=== PATIENT | female | born 1940 | race Two or more races ===

== ENCOUNTER 2017-11-02 11:08 | Inpatient (IN) | payer OTHER ==
[~2017-11-02] VITALS: Ht 167.6 cm; Wt 110.6 kg
[2017-11-02] MEDS ORDERED: OMEG1CAP59 PO (11:59)
[2017-11-02] MEDS ORDERED: FENO54TA3 PO (11:59)
[2017-11-02] MEDS ORDERED: LISI-646 PO (11:59)
[2017-11-02] MEDS ORDERED: ASPI-231 PO (11:59)
[2017-11-02] MEDS ORDERED: ATOR40TA52 PO (11:59)
[2017-11-02] MEDS ORDERED: METF-370 PO (11:59)
[2017-11-02] MEDS ORDERED: SODIUM CHLORIDE 0.9% 1,000 ML IV ONE (12:17)
[2017-11-02 12:51] LABS: Basophils # (auto) 0 uL; Basophils % (auto) 0.4 % (0.0-2.0); Eosinophils # (auto) 0.1 uL; Eosinophils % (auto) 0.7 % (0.0-7.0); Hematocrit 43.4 % (36.0-46.0); Hemoglobin 14.3 g/dL (12.2-16.2); Lymphocytes % (auto) 12.8 % (10.0-50.0); Mean Corpuscular Hemoglobin 29.6 pg (28.0-32.0); Mean Corpuscular Volume 89.7 fL (80.0-100.0); Monocytes # (auto) 0.5 uL; Monocytes % (auto) 6.2 % (0.0-12.0); Neutrophils # (auto) 5.9 uL; Neutrophils % (auto) 79.9 % (37.0-80.0); Platelet Count (auto) 266 10^3/uL (140-450); Red Blood Cells 4.84 10^6/uL (4.0-5.20); Red Cell Distribution Width 15.1 % (11.8-14.3); White Blood Cell 7.4 10^3/uL (4.4-10.8)
[2017-11-02 13:04] LABS: Partial Thromboplastin Time 27.3 sec (23.78-33.04); Prothrombin Time 10.7 sec (9.27-12.13)
[2017-11-02 13:05] LABS: Albumin 3.1 g/dL (3.4-5.0); BUN/Creatinine Ratio 12.6; Bilirubin, Total 0.6 mg/dL (0.2-1.0); Calcium 8.7 mg/dL (8.5-10.1); Potassium 3.9 mmol/L (3.5-5.1); Total Protein 7.6 g/dL (6.4-8.2)
[2017-11-02 13:12] LABS: Urine Bacteria FEW /hpf (None Seen); Urine Blood Negative /uL (Negative); Urine Specific Gravity 1.009 (1.001-1.035); Urine WBC 108 /hpf (0 - 5); Urine WBC Clumps PRESENT /hpf (None Seen)
[2017-11-02] MEDS ORDERED: cefTRIAXone 1GM/10ml IVPUSH 10 ML IV ONE (15:30)
[2017-11-02] MEDS ORDERED: DEXTROSE (50%) 50ML SYRG IV PRN (16:45)
[2017-11-02] MEDS: InsuLIN REG 1unit/0.01ml Soln (100units/ml) SC SCH ×2 (17:00→22:04)
[2017-11-02] MEDS: ACCU-CHEK COMFORT CURVE STRIP VI SCH ×3 (17:00→22:04)
[2017-11-02] MEDS ORDERED: ACETAMINOPHEN 325 MG TAB PO PRN (17:15)
[2017-11-02] MEDS ORDERED: TEMAZEPAM 15 MG CAP PO PRN (17:15)
[2017-11-02] MEDS ORDERED: DOCUSATE SOD 100 MG CAP PO PRN (17:15)
[2017-11-02] MEDS ORDERED: ONDANSETRON HCL 4 MG/2 ML VIAL IV PRN (17:15)
[2017-11-02] MEDS ORDERED: MORPHINE SULFATE 8mg/ml INJ SDV IV PRN (17:15)
[2017-11-02] MEDS ORDERED: HYDROcodone-ACET 5/325MG TAB PO PRN (17:15)
[2017-11-02] MEDS ORDERED: NITROGLYCERIN 0.4 MG SL TAB SL PRN (17:15)
[2017-11-02 20:30] VITALS: BP 116/58
[2017-11-02] MEDS: ATORVASTATIN 20 MG TAB PO SCH (21:49)
[2017-11-02] MEDS: OMEGA-3 PO SCH (21:49)
[2017-11-02] MEDS: Boost Glucose Control 8 Ounces PO SCH (21:49)
[2017-11-02] MEDS: SODIUM CHLOR 0.9% PF (SALINE LOCK) 10ML VIAL/SYR IV SCH (21:49)
[2017-11-03 05:29] VITALS: BP 114/52
[2017-11-03 05:59] LABS: Basophils # (auto) 0 uL; Basophils % (auto) 0.2 % (0.0-2.0); Eosinophils # (auto) 0.2 uL; Eosinophils % (auto) 2.8 % (0.0-7.0); Hematocrit 39.1 % (36.0-46.0); Hemoglobin 13.2 g/dL (12.2-16.2); Lymphocytes # (auto) 1.7 uL; Lymphocytes % (auto) 25.1 % (10.0-50.0); Mean Corpuscular Hgb Conc. 33.9 g/dL (32.0-36.0); Mean Corpuscular Volume 88.5 fL (80.0-100.0); Monocytes # (auto) 0.7 uL; Monocytes % (auto) 10.1 % (0.0-12.0); Neutrophils # (auto) 4.2 uL; Neutrophils % (auto) 61.8 % (37.0-80.0); Nucleated Red Blood Cells % 0.2 %; Platelet Count (auto) 238 10^3/uL (140-450); Red Blood Cells 4.41 10^6/uL (4.0-5.20); Red Cell Distribution Width 15.3 % (11.8-14.3); White Blood Cell 6.8 10^3/uL (4.4-10.8)
[2017-11-03] MEDS: OMEGA-3 PO SCH ×3 (06:10→22:25)
[2017-11-03] MEDS: SODIUM CHLOR 0.9% PF (SALINE LOCK) 10ML VIAL/SYR IV SCH ×3 (06:10→22:25)
[2017-11-03 06:13] LABS: BUN/Creatinine Ratio 22.6; Bilirubin, Total 0.7 mg/dL (0.2-1.0); Calcium 8.4 mg/dL (8.5-10.1); Total Protein 7.1 g/dL (6.4-8.2)
[2017-11-03] MEDS: ACCU-CHEK COMFORT CURVE STRIP VI SCH ×4 (06:15→22:26)
[2017-11-03] MEDS: InsuLIN REG 1unit/0.01ml Soln (100units/ml) SC SCH ×4 (06:28→22:26)
[2017-11-03] MEDS: Boost Glucose Control 8 Ounces PO SCH ×3 (08:00→18:00)
[2017-11-03 08:56] VITALS: BP 127/55
[2017-11-03] MEDS: cefTRIAXone 1GM/10ml IVPUSH 10 ML IV SCH (09:33)
[2017-11-03] MEDS: ENOXAPARIN SOD 40 MG/0.4 ML SYRINGE SC SCH (09:33)
[2017-11-03] MEDS: MULTIPLE VITAMIN TAB PO SCH (09:34)
[2017-11-03] MEDS: LISINOPRIL 20 MG TAB PO SCH (09:34)
[2017-11-03] MEDS: ASPirin-EC 81 mg tab PO SCH (09:35)
[2017-11-03] MEDS: FENOFIBRATE 54 MG PO SCH (10:00)
[2017-11-03 13:17] VITALS: BP 102/57
[2017-11-03] MEDS ORDERED: IOHEXOL 350 MG/ML 100ML IJ ONE (14:35)
[2017-11-03 16:49] VITALS: BP 115/46
[2017-11-03 22:00] VITALS: BP 108/64
[2017-11-03] MEDS: ATORVASTATIN 20 MG TAB PO SCH (22:25)
[2017-11-04 05:00] VITALS: BP 113/54
[2017-11-04] MEDS: OMEGA-3 PO SCH ×3 (06:25→22:00)
[2017-11-04] MEDS: SODIUM CHLOR 0.9% PF (SALINE LOCK) 10ML VIAL/SYR IV SCH ×3 (06:25→22:00)
[2017-11-04] MEDS: ACCU-CHEK COMFORT CURVE STRIP VI SCH ×4 (06:43→22:10)
[2017-11-04] MEDS: InsuLIN REG 1unit/0.01ml Soln (100units/ml) SC SCH ×4 (06:43→22:10)
[2017-11-04] MEDS: Boost Glucose Control 8 Ounces PO SCH ×3 (08:00→18:00)
[2017-11-04 08:53] VITALS: BP 93/42
[2017-11-04] MEDS: LISINOPRIL 20 MG TAB PO SCH (10:00)
[2017-11-04] MEDS: FENOFIBRATE 54 MG PO SCH (10:08)
[2017-11-04] MEDS: MULTIPLE VITAMIN TAB PO SCH (10:09)
[2017-11-04] MEDS: ASPirin-EC 81 mg tab PO SCH (10:09)
[2017-11-04] MEDS: cefTRIAXone 1GM/10ml IVPUSH 10 ML IV SCH (10:10)
[2017-11-04] MEDS: ENOXAPARIN SOD 40 MG/0.4 ML SYRINGE SC SCH (10:17)
[2017-11-04 13:07] VITALS: BP 101/73
[2017-11-04] MEDS ORDERED: DILTIAZEM HCL 25 MG/5 ML VIAL IV ONE ×2 (13:30→14:15)
[2017-11-04] MEDS ORDERED: METOPROLOL TARTRATE 1MG/1ML-5ML VIAL IV ONE ×2 (14:45→17:00)
[2017-11-04 16:58] VITALS: BP 97/60
[2017-11-04] MEDS ORDERED: SOTALOL HCL 80 MG TAB PO ONE (18:15)
[2017-11-04] MEDS ORDERED: DIGOXIN (250MCG/ML) 2 ML AMPULE IV ONE (21:00)
[2017-11-04 22:00] VITALS: BP 97/53
[2017-11-04] MEDS: ATORVASTATIN 20 MG TAB PO SCH (22:10)
[2017-11-05] VITALS (9 sets, daily range): BP systolic 100–153; BP diastolic 56–82
[2017-11-05] MEDS ORDERED: DIGOXIN (250MCG/ML) 2 ML AMPULE ONE (00:52)
[2017-11-05] MEDS ORDERED: DIGOXIN (250MCG/ML) 2 ML AMPULE IV ONE ×2 (01:00→04:30)
[2017-11-05] MEDS ORDERED: AMIODARONE HCL 150 MG in D5W 5% 100 ML IV ONE (05:45)
[2017-11-05] MEDS ORDERED: AMIODARONE HCL 900 MG in DEXTROSE 500 ML IV SCH (05:55)
[2017-11-05] MEDS: SODIUM CHLOR 0.9% PF (SALINE LOCK) 10ML VIAL/SYR IV SCH ×3 (06:35→21:11)
[2017-11-05] MEDS: InsuLIN REG 1unit/0.01ml Soln (100units/ml) SC SCH ×4 (06:36→21:20)
[2017-11-05] MEDS: ACCU-CHEK COMFORT CURVE STRIP VI SCH ×4 (06:36→22:00)
[2017-11-05] MEDS ORDERED: AMIODARONE HCL 0 MG IV ONE (06:36)
[2017-11-05] MEDS: OMEGA-3 PO SCH ×3 (06:36→21:11)
[2017-11-05] MEDS: Boost Glucose Control 8 Ounces PO SCH ×3 (08:00→17:48)
[2017-11-05] MEDS ORDERED: SOTALOL HCL 80 MG TAB PO SCH (10:00)
[2017-11-05] MEDS: cefTRIAXone 1GM/10ml IVPUSH 10 ML IV SCH (10:30)
[2017-11-05] MEDS: FENOFIBRATE 54 MG PO SCH (10:30)
[2017-11-05] MEDS: MULTIPLE VITAMIN TAB PO SCH (10:31)
[2017-11-05] MEDS: APIXABAN 5 MG TAB PO SCH ×2 (10:42→21:11)
[2017-11-05] MEDS ORDERED: METOPROLOL TARTRATE 25 MG TAB PO SCH (10:45)
[2017-11-05 11:23] LABS: Albumin 2.7 g/dL (3.4-5.0); BUN/Creatinine Ratio 30.3; Bilirubin, Total 0.4 mg/dL (0.2-1.0); Calcium 8.7 mg/dL (8.5-10.1); Magnesium 2.7 mg/dL (1.6-2.6); Potassium 4.8 mmol/L (3.5-5.1); Total Protein 7.2 g/dL (6.4-8.2)
[2017-11-05 13:32] LABS: Basophils # (auto) 0.1 uL; Basophils % (auto) 0.8 % (0.0-2.0); Eosinophils # (auto) 0.4 uL; Eosinophils % (auto) 6.4 % (0.0-7.0); Hematocrit 41.5 % (36.0-46.0); Hemoglobin 14.1 g/dL (12.2-16.2); Lymphocytes % (auto) 30.3 % (10.0-50.0); Mean Corpuscular Hgb Conc. 33.9 g/dL (32.0-36.0); Mean Corpuscular Volume 88.5 fL (80.0-100.0); Monocytes # (auto) 0.6 uL; Monocytes % (auto) 9.1 % (0.0-12.0); Neutrophils # (auto) 3.5 uL; Neutrophils % (auto) 53.4 % (37.0-80.0); Nucleated Red Blood Cells % 0.1 %; Platelet Count (auto) 290 10^3/uL (140-450); Red Blood Cells 4.68 10^6/uL (4.0-5.20); Red Cell Distribution Width 14.6 % (11.8-14.3); White Blood Cell 6.6 10^3/uL (4.4-10.8)
[2017-11-05] MEDS ORDERED: SODIUM CHLORIDE 0.9% 500 ML IV ONE (14:15)
[2017-11-05] MEDS: AMIODARONE HCL 900 MG in DEXTROSE 500 ML IV SCH (17:36)
[2017-11-05] MEDS: ATORVASTATIN 20 MG TAB PO SCH (21:11)
[2017-11-05] MEDS: METOPROLOL TARTRATE 25 MG TAB PO SCH (21:11)
[2017-11-06] VITALS (13 sets, daily range): BP systolic 101–136; BP diastolic 26–104
[2017-11-06] MEDS: SODIUM CHLOR 0.9% PF (SALINE LOCK) 10ML VIAL/SYR IV SCH ×3 (06:00→22:07)
[2017-11-06] MEDS: OMEGA-3 PO SCH ×3 (06:00→21:45)
[2017-11-06] MEDS: InsuLIN REG 1unit/0.01ml Soln (100units/ml) SC SCH ×4 (07:00→21:44)
[2017-11-06] MEDS: ACCU-CHEK COMFORT CURVE STRIP VI SCH ×4 (07:00→21:44)
[2017-11-06] MEDS: cefTRIAXone 1GM/10ml IVPUSH 10 ML IV SCH (09:07)
[2017-11-06] MEDS: AMIODARONE HCL 200 MG TAB PO SCH ×2 (09:07→20:00)
[2017-11-06] MEDS: Boost Glucose Control 8 Ounces PO SCH ×3 (09:12→18:18)
[2017-11-06] MEDS: MULTIPLE VITAMIN TAB PO SCH (09:57)
[2017-11-06] MEDS: APIXABAN 5 MG TAB PO SCH ×2 (09:57→21:43)
[2017-11-06] MEDS: METOPROLOL TARTRATE 25 MG TAB PO SCH ×2 (09:57→21:42)
[2017-11-06] MEDS: FENOFIBRATE 54 MG PO SCH (09:58)
[2017-11-06 10:28] LABS: Basophils # (auto) 0 uL; Basophils % (auto) 0.6 % (0.0-2.0); Eosinophils # (auto) 0.3 uL; Eosinophils % (auto) 5.3 % (0.0-7.0); Hematocrit 40.5 % (36.0-46.0); Hemoglobin 13.4 g/dL (12.2-16.2); Lymphocytes % (auto) 32.5 % (10.0-50.0); Mean Corpuscular Hemoglobin 29.3 pg (28.0-32.0); Mean Corpuscular Volume 88.5 fL (80.0-100.0); Monocytes # (auto) 0.4 uL; Monocytes % (auto) 6.7 % (0.0-12.0); Neutrophils # (auto) 3.4 uL; Neutrophils % (auto) 54.9 % (37.0-80.0); Platelet Count (auto) 262 10^3/uL (140-450); Red Blood Cells 4.57 10^6/uL (4.0-5.20); White Blood Cell 6.3 10^3/uL (4.4-10.8)
[2017-11-06 10:59] LABS: Albumin 2.9 g/dL (3.4-5.0); BUN/Creatinine Ratio 23.2; Bilirubin, Total 0.4 mg/dL (0.2-1.0); Calcium 8.7 mg/dL (8.5-10.1); Potassium 4.5 mmol/L (3.5-5.1); Total Protein 6.9 g/dL (6.4-8.2)
[2017-11-06] MEDS: AMIODARONE HCL 900 MG in DEXTROSE 500 ML IV SCH (11:55)
[2017-11-06] MEDS ORDERED: DIGOXIN (250MCG/ML) 2 ML AMPULE IV ONE (12:00)
[2017-11-06] MEDS ORDERED: METOPROLOL TARTRATE 25 MG TAB PO ONE (12:15)
[2017-11-06] MEDS: ATORVASTATIN 20 MG TAB PO SCH (21:43)
[2017-11-07] VITALS: BP 119/51
[2017-11-07 04:00] VITALS: BP 126/55
[2017-11-07 05:13] LABS: Basophils # (auto) 0.1 uL; Basophils % (auto) 0.7 % (0.0-2.0); Eosinophils # (auto) 0.4 uL; Eosinophils % (auto) 5.6 % (0.0-7.0); Hematocrit 40.7 % (36.0-46.0); Hemoglobin 13.7 g/dL (12.2-16.2); Lymphocytes # (auto) 2.3 uL; Lymphocytes % (auto) 30.7 % (10.0-50.0); Mean Corpuscular Hemoglobin 29.8 pg (28.0-32.0); Mean Corpuscular Hgb Conc. 33.5 g/dL (32.0-36.0); Mean Corpuscular Volume 88.7 fL (80.0-100.0); Monocytes # (auto) 0.5 uL; Monocytes % (auto) 6.8 % (0.0-12.0); Neutrophils # (auto) 4.2 uL; Neutrophils % (auto) 56.2 % (37.0-80.0); Nucleated Red Blood Cells % 0.3 %; Platelet Count (auto) 254 10^3/uL (140-450); Red Blood Cells 4.59 10^6/uL (4.0-5.20); White Blood Cell 7.4 10^3/uL (4.4-10.8)
[2017-11-07 05:41] LABS: Albumin 2.9 g/dL (3.4-5.0); BUN/Creatinine Ratio 22.9; Calcium 8.7 mg/dL (8.5-10.1); Potassium 4.4 mmol/L (3.5-5.1)
[2017-11-07 05:44] LABS: Bilirubin, Total 0.5 mg/dL (0.2-1.0); Total Protein 7.1 g/dL (6.4-8.2)
[2017-11-07] MEDS: OMEGA-3 PO SCH ×3 (06:00→21:11)
[2017-11-07] MEDS: SODIUM CHLOR 0.9% PF (SALINE LOCK) 10ML VIAL/SYR IV SCH ×3 (06:00→21:11)
[2017-11-07] MEDS: InsuLIN REG 1unit/0.01ml Soln (100units/ml) SC SCH ×4 (07:00→21:14)
[2017-11-07] MEDS: ACCU-CHEK COMFORT CURVE STRIP VI SCH ×4 (07:00→21:12)
[2017-11-07 08:03] VITALS: BP 123/67
[2017-11-07] MEDS: AMIODARONE HCL 200 MG TAB PO SCH ×2 (08:09→19:59)
[2017-11-07] MEDS: Boost Glucose Control 8 Ounces PO SCH (09:26)
[2017-11-07] MEDS: MULTIPLE VITAMIN TAB PO SCH (11:00)
[2017-11-07] MEDS: METOPROLOL TARTRATE 25 MG TAB PO SCH ×2 (11:00→21:32)
[2017-11-07] MEDS ORDERED: AMIODARONE HCL 150 MG in D5W 5% 100 ML IV ONE (11:00)
[2017-11-07] MEDS: FENOFIBRATE 54 MG PO SCH (11:00)
[2017-11-07] MEDS: APIXABAN 5 MG TAB PO SCH ×2 (11:00→21:10)
[2017-11-07 11:50] VITALS: BP 132/74
[2017-11-07] MEDS ORDERED: DEXTROSE (50%) 50ML SYRG IV PRN (14:00)
[2017-11-07] MEDS: cefTRIAXone 1GM/10ml IVPUSH 10 ML IV SCH (15:43)
[2017-11-07 16:00] VITALS: BP 123/68
[2017-11-07 19:44] VITALS: BP 114/59
[2017-11-07] MEDS: ATORVASTATIN 20 MG TAB PO SCH (21:11)
[2017-11-08] VITALS (7 sets, daily range): BP systolic 101–153; BP diastolic 53–68
[2017-11-08] MEDS: InsuLIN REG 1unit/0.01ml Soln (100units/ml) SC SCH ×4 (05:57→21:13)
[2017-11-08] MEDS: SODIUM CHLOR 0.9% PF (SALINE LOCK) 10ML VIAL/SYR IV SCH ×3 (05:57→21:03)
[2017-11-08] MEDS: ACCU-CHEK COMFORT CURVE STRIP VI SCH ×4 (05:57→21:13)
[2017-11-08] MEDS: OMEGA-3 PO SCH ×3 (05:58→21:11)
[2017-11-08 06:05] LABS: Basophils # (auto) 0.1 uL; Basophils % (auto) 0.9 % (0.0-2.0); Eosinophils # (auto) 0.4 uL; Eosinophils % (auto) 4.4 % (0.0-7.0); Hemoglobin 12.1 g/dL (12.2-16.2); Lymphocytes # (auto) 2.4 uL; Lymphocytes % (auto) 28.1 % (10.0-50.0); Mean Corpuscular Hemoglobin 29.8 pg (28.0-32.0); Mean Corpuscular Hgb Conc. 33.7 g/dL (32.0-36.0); Mean Corpuscular Volume 88.5 fL (80.0-100.0); Monocytes # (auto) 0.6 uL; Neutrophils # (auto) 5.1 uL; Neutrophils % (auto) 59.6 % (37.0-80.0); Platelet Count (auto) 307 10^3/uL (140-450); Red Blood Cells 4.07 10^6/uL (4.0-5.20); White Blood Cell 8.5 10^3/uL (4.4-10.8)
[2017-11-08 06:19] LABS: Albumin 2.9 g/dL (3.4-5.0); BUN/Creatinine Ratio 20.5; Calcium 7.9 mg/dL (8.5-10.1); Potassium 5.4 mmol/L (3.5-5.1)
[2017-11-08 06:22] LABS: Bilirubin, Total 0.6 mg/dL (0.2-1.0); Total Protein 6.8 g/dL (6.4-8.2)
[2017-11-08] MEDS: AMIODARONE HCL 200 MG TAB PO SCH ×2 (08:00→19:43)
[2017-11-08] MEDS: APIXABAN 5 MG TAB PO SCH ×2 (09:11→21:11)
[2017-11-08] MEDS: METOPROLOL TARTRATE 25 MG TAB PO SCH ×2 (09:16→21:12)
[2017-11-08] MEDS: cefTRIAXone 1GM/10ml IVPUSH 10 ML IV SCH (09:16)
[2017-11-08] MEDS: FENOFIBRATE 54 MG PO SCH (09:17)
[2017-11-08] MEDS: MULTIPLE VITAMIN TAB PO SCH (09:17)
[2017-11-08] MEDS ORDERED: FUROSEMIDE 20 MG/2 ML VIAL IV ONE (10:30)
[2017-11-08] MEDS ORDERED: SODIUM BICARBONATE 8.4% INJ 50ML SYRINGE IV ONE (10:30)
[2017-11-08] MEDS ORDERED: CALCIUM GLUC 4.65meq/50ml D5AE 50 ML IV ONE (10:30)
[2017-11-08] MEDS: CIPROFLOXACIN HCL 500 MG TAB PO SCH ×2 (10:51→21:11)
[2017-11-08] MEDS ORDERED: AMIODARONE HCL 200 MG TAB PO ONE (16:15)
[2017-11-08] MEDS: ATORVASTATIN 20 MG TAB PO SCH (21:12)
[2017-11-09 05:23] VITALS: BP 122/56
[2017-11-09] MEDS: SODIUM CHLOR 0.9% PF (SALINE LOCK) 10ML VIAL/SYR IV SCH ×2 (05:58→14:36)
[2017-11-09 06:05] LABS: Basophils # (auto) 0.1 uL; Basophils % (auto) 1.5 % (0.0-2.0); Eosinophils # (auto) 0.5 uL; Eosinophils % (auto) 6.4 % (0.0-7.0); Hematocrit 34.7 % (36.0-46.0); Hemoglobin 11.5 g/dL (12.2-16.2); Lymphocytes # (auto) 1.9 uL; Mean Corpuscular Hemoglobin 29.6 pg (28.0-32.0); Mean Corpuscular Hgb Conc. 33.2 g/dL (32.0-36.0); Mean Corpuscular Volume 89.1 fL (80.0-100.0); Monocytes # (auto) 0.5 uL; Monocytes % (auto) 6.1 % (0.0-12.0); Neutrophils # (auto) 4.7 uL; Nucleated Red Blood Cells % 0.1 %; Platelet Count (auto) 254 10^3/uL (140-450); Red Blood Cells 3.89 10^6/uL (4.0-5.20); Red Cell Distribution Width 14.6 % (11.8-14.3); White Blood Cell 7.6 10^3/uL (4.4-10.8)
[2017-11-09] MEDS: OMEGA-3 PO SCH ×2 (06:13→14:37)
[2017-11-09] MEDS: ACCU-CHEK COMFORT CURVE STRIP VI SCH ×2 (06:13→11:59)
[2017-11-09] MEDS: InsuLIN REG 1unit/0.01ml Soln (100units/ml) SC SCH ×2 (06:13→11:59)
[2017-11-09 06:30] LABS: Potassium 4.2 mmol/L (3.5-5.1)
[2017-11-09 06:34] LABS: Albumin 2.7 g/dL (3.4-5.0); Calcium 8.5 mg/dL (8.5-10.1)
[2017-11-09 06:46] LABS: Bilirubin, Total 0.5 mg/dL (0.2-1.0); Total Protein 6.5 g/dL (6.4-8.2)
[2017-11-09] MEDS: FENOFIBRATE 54 MG PO SCH (08:20)
[2017-11-09] MEDS: MULTIPLE VITAMIN TAB PO SCH (08:20)
[2017-11-09] MEDS: CIPROFLOXACIN HCL 500 MG TAB PO SCH (08:21)
[2017-11-09] MEDS: METOPROLOL TARTRATE 25 MG TAB PO SCH (08:21)
[2017-11-09] MEDS: APIXABAN 5 MG TAB PO SCH (08:22)
[2017-11-09] MEDS: AMIODARONE HCL 200 MG TAB PO SCH (08:37)
[2017-11-09 09:00] VITALS: BP 125/60
[2017-11-09 13:00] VITALS: BP 124/62
== END 2017-11-09 14:46 | disposition home or self-care (01) | DRG 64 ==
LOC: EDBD 11:08 → ER 11:13 → TELE 11:14 → TELE-CENTR 19:53 → DOU IN ICU 11-05 05:56 → TELE-EAST 11-08 22:35
PROVIDERS: ADMIT Internal Medicine; ATTEND Family Medicine
DX: I63.9 Cerebral infarction, unspecified (principal); J96.91 Respiratory failure, unspecified with hypoxia; E44.0 Moderate protein-calorie malnutrition; E11.21 Type 2 diabetes mellitus with diabetic nephropathy; E11.40 Type 2 diabetes mellitus with diabetic neuropathy, unspecified; I48.91 Unspecified atrial fibrillation; E87.1 Hypo-osmolality and hyponatremia; E66.01 Morbid (severe) obesity due to excess calories; N39.0 Urinary tract infection, site not specified; W18.2XXA Fall in (into) shower or empty bathtub, initial encounter; E03.9 Hypothyroidism, unspecified; E11.22 Type 2 diabetes mellitus with diabetic chronic kidney disease; N18.3 Chronic kidney disease, stage 3 (moderate); Z68.36 Body mass index [BMI] 36.0-36.9, adult; E78.00 Pure hypercholesterolemia, unspecified; E78.5 Hyperlipidemia, unspecified; E86.0 Dehydration; G89.29 Other chronic pain; M25.562 Pain in left knee; M25.561 Pain in right knee; E86.1 Hypovolemia; E87.5 Hyperkalemia; Z96.653 Presence of artificial knee joint, bilateral; F02.80 Dementia in other diseases classified elsewhere, unspecified severity, without behavioral disturbance, psychotic disturbance, mood disturbance, and anxiety; G30.9 Alzheimer's disease, unspecified; G83.14 Monoplegia of lower limb affecting left nondominant side; I12.9 Hypertensive chronic kidney disease with stage 1 through stage 4 chronic kidney disease, or unspecified chronic kidney disease; Z79.01 Long term (current) use of anticoagulants; Z90.710 Acquired absence of both cervix and uterus; Z79.4 Long term (current) use of insulin; Z79.899 Other long term (current) drug therapy; Z82.49 Family history of ischemic heart disease and other diseases of the circulatory system; Y92.89 Other specified places as the place of occurrence of the external cause; Y99.8 Other external cause status; Z79.82 Long term (current) use of aspirin; Y93.E1 Activity, personal bathing and showering; E87.6 Hypokalemia
CPT/HCPCS: 36415; 51702; 70450; 71046; 71275; 73564; 80053; 81001; 82962; 83036; 83605; 83735; 83880; 84443; 84484; 85025; 85379; 85610; 85730; 87040; 87081; 87086; 87088; 87186; 93005; 93306; 93886; 93970; 94761; 96361; 96374; 97110; 97116; 97163; 97530; J0610; J1815; J7060

== ENCOUNTER 2019-04-12 07:54 | Emergency (ER) | payer OTHER, MEDICAID ==
[~2019-04-12] VITALS: Ht 172.7 cm; Wt 113.4 kg
[~2019-04-12 07:54] MED LIST: ASPI-231 PO; ATOR40TA52 PO; FENO54TA PO; LISI-646 PO; METF-370 PO; OMEG1CAP59 PO
[2019-04-12 09:42] LABS: Basophils # (auto) 0 uL; Basophils % (auto) 0.5 % (0.0-2.0); Eosinophils # (auto) 0.2 uL; Eosinophils % (auto) 2.3 % (0.0-7.0); Hematocrit 41.9 % (36.0-46.0); Lymphocytes # (auto) 1.5 uL; Mean Corpuscular Hemoglobin 30.2 pg (28.0-32.0); Mean Corpuscular Hgb Conc. 33.5 g/dL (32.0-36.0); Mean Corpuscular Volume 90.3 fL (80.0-100.0); Monocytes # (auto) 0.4 uL; Monocytes % (auto) 5.2 % (0.0-12.0); Neutrophils # (auto) 5.1 uL; Platelet Count (auto) 225 10^3/uL (140-450); Red Blood Cells 4.64 10^6/uL (4.0-5.20); Red Cell Distribution Width 14.3 % (11.8-14.3); White Blood Cell 7.2 10^3/uL (4.4-10.8)
[2019-04-12 10:18] LABS: Alanine Aminotransferase 17 U/L (13-56); Albumin 3.3 g/dL (3.4-5.0); Alkaline Phosphatase 111 U/L (45-117); Anion Gap 7 (5-15); Aspartate Aminotransferase 14 U/L (15-37); BUN/Creatinine Ratio 13.4; Bilirubin, Total 0.4 mg/dL (0.2-1.0); Blood Urea Nitrogen 13 mg/dL (7-18); Calcium 8.6 mg/dL (8.5-10.1); Carbon Dioxide 33 mmol/L (21-32); Chloride 99 mmol/L (98-107); GFR African American 72 mL/min; GFR Non-African American 59 mL/min; Glucose 204 mg/dL (74-106); Potassium 4.4 mmol/L (3.5-5.1); Sodium 139 mmol/L (136-145); Total Protein 7.7 g/dL (6.4-8.2)
[2019-04-12 11:01] VITALS: BP 122/44
== END 2019-04-12 11:52 | disposition home or self-care (01) ==
LOC: EDBD 07:54 → ER 07:54
DX: E11.65 Type 2 diabetes mellitus with hyperglycemia (principal); E44.1 Mild protein-calorie malnutrition; N39.0 Urinary tract infection, site not specified; R55 Syncope and collapse; I48.91 Unspecified atrial fibrillation; E78.5 Hyperlipidemia, unspecified; I10 Essential (primary) hypertension; Z79.899 Other long term (current) drug therapy
CPT/HCPCS: 36415; 70450; 80053; 82962; 83735; 84484; 85025

== ENCOUNTER 2021-05-03 14:41 | Emergency (ER) | payer OTHER, MEDICAID ==
[~2021-05-03] VITALS: Ht 162.6 cm; Wt 90.7 kg
[~2021-05-03 14:41] MED LIST changes: -ASPI-231 PO; +ASPI1TAB20 PO; -LISI-646 PO; +LISI20TA28 PO
[2021-05-03 15:45] VITALS: BP 111/43
== END 2021-05-03 16:51 | disposition home or self-care (01) ==
LOC: ER 14:41
DX: S20.212A Contusion of left front wall of thorax, initial encounter (principal); J04.0 Acute laryngitis; J44.9 Chronic obstructive pulmonary disease, unspecified; I10 Essential (primary) hypertension; I48.91 Unspecified atrial fibrillation; E11.9 Type 2 diabetes mellitus without complications; E78.5 Hyperlipidemia, unspecified; Z90.710 Acquired absence of both cervix and uterus; Z79.82 Long term (current) use of aspirin; Z79.899 Other long term (current) drug therapy; W01.0XXA Fall on same level from slipping, tripping and stumbling without subsequent striking against object, initial encounter; Y93.89 Activity, other specified; Y92.89 Other specified places as the place of occurrence of the external cause; Y99.8 Other external cause status
CPT/HCPCS: 71101; 93005

== ENCOUNTER 2021-12-31 14:38 | Emergency (ER) | payer OTHER, MEDICAID ==
[~2021-12-31] VITALS: Ht 170.2 cm; Wt 190.0 kg
[2021-12-31] MEDS ORDERED: SODIUM CHLORIDE 0.9% 1,000 ML IVB ONE (16:00)
[2021-12-31 16:54] LABS: Basophils # (auto) 0 10 ^3/uL (0-0.2); Basophils % (auto) 0.6 % (0.0-2.0); Eosinophils # (auto) 0.1 10 ^3/uL (0-0.8); Eosinophils % (auto) 1.1 % (0.0-7.0); Lymphocytes # (auto) 1.2 10 ^3/uL (0.4-5.4); Lymphocytes % (auto) 16.1 % (10.0-50.0); Mean Corpuscular Hemoglobin 29.5 pg (28.0-32.0); Mean Corpuscular Hgb Conc. 32.6 g/dL (32.0-36.0); Mean Corpuscular Volume 90.5 fL (80.0-100.0); Monocytes # (auto) 0.4 10 ^3/uL (0-1.3); Monocytes % (auto) 5.2 % (0.0-12.0); Neutrophils # (auto) 5.8 10 ^3/uL (1.6-8.6); Nucleated Red Blood Cells % 0.1 %; Red Blood Cells 4.42 10^6/uL (4.0-5.20); Red Cell Distribution Width 14.4 % (11.8-14.3); White Blood Cell 7.5 10^3/uL (4.4-10.8)
[2021-12-31 17:13] LABS: Albumin 3.6 g/dL (3.4-5.0); BUN/Creatinine Ratio 14.7; Calcium 9.1 mg/dL (8.5-10.1); Magnesium 2.4 mg/dL (1.6-2.6); Potassium 4.7 mmol/L (3.5-5.1)
[2021-12-31 17:16] LABS: Bilirubin, Total 0.5 mg/dL (0.2-1.0); Total Protein 6.9 g/dL (6.4-8.2)
[2021-12-31 17:30] LABS: Urine Bacteria MANY /hpf (None Seen); Urine Blood Negative /uL (Negative); Urine Hyaline Cast MOD /lpf (0 - 2); Urine Mucus FEW (None Seen); Urine Specific Gravity 1.014 (1.001-1.035); Urine WBC 34 /hpf (0 - 5)
[2021-12-31] MEDS ORDERED: cefTRIAXone 1GM/50ML D5W 50 ML IV ONE (18:15)
[2021-12-31] MEDS ORDERED: CIPR-173 PO (21:50)
[2021-12-31 22:25] VITALS: BP 102/48
[2022-01-01] MEDS ORDERED: NITR-87 PO (15:25)
== END 2021-12-31 22:35 | disposition home or self-care (01) ==
LOC: ER 14:38 → EDBD 14:38 → ER 22:35
DX: R42 Dizziness and giddiness (principal); N39.0 Urinary tract infection, site not specified; J44.9 Chronic obstructive pulmonary disease, unspecified; E11.9 Type 2 diabetes mellitus without complications; E78.5 Hyperlipidemia, unspecified; Z20.822 Contact with and (suspected) exposure to COVID-19
CPT/HCPCS: 36415; 70450; 71045; 74176; 80053; 81001; 82728; 83605; 83735; 84484; 85025; 86141; 87040; 87077; 87186; 87426; 96361; 96365; 99285; J0696; J7030

== ENCOUNTER 2022-09-15 15:25 | Inpatient (IN) | payer OTHER, MEDICAID ==
[~2022-09-15] VITALS: Ht 160 cm; Wt 83.8 kg
[~2022-09-15 15:25] MED LIST changes: +CIPR-173 PO; +NITR-87 PO
[2022-09-15] MEDS ORDERED: AMIODARONE 450mg/250ml AE 250 ML IV SCH (16:00)
[2022-09-15 16:24] LABS: Basophils # (auto) 0.1 10 ^3/uL (0-0.2); Basophils % (auto) 1.2 % (0.0-2.0); Eosinophils # (auto) 0.1 10 ^3/uL (0-0.8); Eosinophils % (auto) 1.5 % (0.0-7.0); Hematocrit 41.8 % (36.0-46.0); Hemoglobin 13.7 g/dL (12.2-16.2); Lymphocytes # (auto) 1.3 10 ^3/uL (0.4-5.4); Lymphocytes % (auto) 20.5 % (10.0-50.0); Mean Corpuscular Hemoglobin 29.2 pg (28.0-32.0); Mean Corpuscular Hgb Conc. 32.8 g/dL (32.0-36.0); Monocytes # (auto) 0.3 10 ^3/uL (0-1.3); Neutrophils # (auto) 4.7 10 ^3/uL (1.6-8.6); Neutrophils % (auto) 71.8 % (37.0-80.0); Nucleated Red Blood Cells % 0.2 %; Red Blood Cells 4.69 10^6/uL (4.0-5.20); Red Cell Distribution Width 15.6 % (11.8-14.3); White Blood Cell 6.5 10^3/uL (4.4-10.8)
[2022-09-15 17:01] LABS: Albumin 3.2 g/dL (3.4-5.0); Calcium 8.7 mg/dL (8.5-10.1); Potassium 4.6 mmol/L (3.5-5.1)
[2022-09-15 17:05] LABS: BUN/Creatinine Ratio 17.2 (10.0-20.0); Bilirubin, Total 0.9 mg/dL (0.2-1.0); Total Protein 6.4 g/dL (6.4-8.2)
[2022-09-15 18:30] LABS: Urine Bacteria MOD /hpf (None Seen); Urine Blood Negative /uL (Negative); Urine Hyaline Cast MOD /lpf (0 - 2); Urine Mucus FEW (None Seen); Urine Specific Gravity 1.015 (1.001-1.035); Urine WBC 2 /hpf (0 - 5)
[2022-09-15] MEDS ORDERED: ATOR20TA50 PO (18:51)
[2022-09-15] MEDS ORDERED: APIX5TAB PO (18:51)
[2022-09-15] MEDS ORDERED: LEV25T PO (18:51)
[2022-09-15] MEDS ORDERED: FUR20T PO (18:51)
[2022-09-15] MEDS ORDERED: MET25T PO (18:51)
[2022-09-15] MEDS ORDERED: cefTRIAXone 1GM/50ML D5W 50 ML IV ONE (19:00)
[2022-09-15] MEDS ORDERED: DEXTROSE (50%) 50ML SYRG IV PRN (19:00)
[2022-09-15] MEDS ORDERED: MORPHINE SULFATE INJ 2 MG/ml SYRG IV PRN (19:00)
[2022-09-15] MEDS ORDERED: ONDANSETRON HCL 4 MG/2 ML VIAL IV PRN (19:00)
[2022-09-15] MEDS ORDERED: NITROGLYCERIN 0.4 MG SL TAB SL PRN (19:00)
[2022-09-15] MEDS ORDERED: DOCUSATE SOD 100 MG CAP PO PRN (19:00)
[2022-09-15] MEDS ORDERED: ACETAMINOPHEN 325 MG TAB PO PRN (19:00)
[2022-09-15] MEDS ORDERED: HYDROcodone-ACET 5/325MG TAB PO PRN (19:00)
[2022-09-15] MEDS ORDERED: SODIUM CHLORIDE 0.9% 500 ML IV ONE (21:22)
[2022-09-15] MEDS ORDERED: FUROSEMIDE 20 MG TAB PO SCH (22:00)
[2022-09-15] MEDS: SODIUM CHLOR 0.9% PF (SALINE LOCK) 10ML VIAL/SYR IV SCH (22:01)
[2022-09-15] MEDS: APIXABAN 5 MG TAB PO SCH (22:52)
[2022-09-15] MEDS: ACCU-CHEK COMFORT CURVE STRIP VI SCH (22:52)
[2022-09-15] MEDS: InsuLIN REG 1unit/0.01ml Soln (100units/ml) SC SCH (22:54)
[2022-09-15] MEDS: NOREPINEPHRINE 8 MG/250ML KIT 250 ML IV SCH (23:30)
[2022-09-16] VITALS (50 sets, daily range): BP systolic 78–130; BP diastolic 42–88
[2022-09-16] MEDS: SODIUM BICARBONATE 50ML VIAL 75 ML in D5W 5% 1,000 ML IV SCH ×2 (00:20→12:45)
[2022-09-16] MEDS: AMIODARONE 450mg/250ml AE 250 ML IV SCH ×3 (02:13→02:16)
[2022-09-16] MEDS: ONDANSETRON HCL 4 MG/2 ML VIAL IV PRN ×2 (04:29→09:38)
[2022-09-16] MEDS: SODIUM CHLOR 0.9% PF (SALINE LOCK) 10ML VIAL/SYR IV SCH ×3 (06:22→22:06)
[2022-09-16 06:46] LABS: Albumin 3.2 g/dL (3.4-5.0); Anion Gap 15 (5-15); Calcium 8.4 mg/dL (8.5-10.1); Carbon Dioxide 16 mmol/L (21-32); Chloride 109 mmol/L (98-107); Glucose 126 mg/dL (74-106); Sodium 140 mmol/L (136-145)
[2022-09-16] MEDS: ACCU-CHEK COMFORT CURVE STRIP VI SCH ×4 (06:47→22:06)
[2022-09-16] MEDS: InsuLIN REG 1unit/0.01ml Soln (100units/ml) SC SCH ×4 (06:47→22:25)
[2022-09-16 06:50] LABS: Alanine Aminotransferase 770 U/L (13-56); Alkaline Phosphatase 164 U/L (45-117); Aspartate Aminotransferase 843 U/L (15-37); BUN/Creatinine Ratio 13.1 (10.0-20.0); Blood Urea Nitrogen 26 mg/dL (7-18); GFR African American 31 mL/min; GFR Non-African American 26 mL/min; Total Protein 6.6 g/dL (6.4-8.2)
[2022-09-16 06:52] LABS: Basophils # (auto) 0 10 ^3/uL (0-0.2); Basophils % (auto) 0.1 % (0.0-2.0); Eosinophils # (auto) 0 10 ^3/uL (0-0.8); Eosinophils % (auto) 0.2 % (0.0-7.0); Hematocrit 49.4 % (36.0-46.0); Hemoglobin 15.9 g/dL (12.2-16.2); Lymphocytes # (auto) 1.4 10 ^3/uL (0.4-5.4); Lymphocytes % (auto) 10.7 % (10.0-50.0); Mean Corpuscular Hemoglobin 29.5 pg (28.0-32.0); Mean Corpuscular Hgb Conc. 32.1 g/dL (32.0-36.0); Mean Corpuscular Volume 91.9 fL (80.0-100.0); Monocytes # (auto) 1.2 10 ^3/uL (0-1.3); Monocytes % (auto) 8.7 % (0.0-12.0); Neutrophils # (auto) 10.7 10 ^3/uL (1.6-8.6); Neutrophils % (auto) 80.3 % (37.0-80.0); Nucleated Red Blood Cells % 0.3 %; Red Blood Cells 5.37 10^6/uL (4.0-5.20); Red Cell Distribution Width 16.2 % (11.8-14.3); White Blood Cell 13.3 10^3/uL (4.4-10.8)
[2022-09-16 06:57] LABS: Potassium 5.9 mmol/L (3.5-5.1)
[2022-09-16] MEDS ORDERED: SODIUM ZIRCONIUM CYCL 10 GM PAK PO ONE ×2 (07:00→08:45)
[2022-09-16] MEDS: NOREPINEPHRINE 8 MG/250ML KIT 250 ML IV SCH ×2 (07:26→13:12)
[2022-09-16] MEDS: LEVOTHYROXINE SODIUM 25 MCG TAB PO SCH (07:44)
[2022-09-16] MEDS ORDERED: metFORMIN HYDROCHLORIDE 500 MG TAB PO SCH (08:00)
[2022-09-16 08:42] LABS: Basophils # (auto) 0.1 10 ^3/uL (0-0.2); Basophils % (auto) 0.6 % (0.0-2.0); Eosinophils # (auto) 0 10 ^3/uL (0-0.8); Eosinophils % (auto) 0.1 % (0.0-7.0); Hematocrit 48.8 % (36.0-46.0); Hemoglobin 15.7 g/dL (12.2-16.2); Lymphocytes # (auto) 0.8 10 ^3/uL (0.4-5.4); Lymphocytes % (auto) 5.3 % (10.0-50.0); Mean Corpuscular Hemoglobin 29.3 pg (28.0-32.0); Mean Corpuscular Hgb Conc. 32.2 g/dL (32.0-36.0); Mean Corpuscular Volume 90.9 fL (80.0-100.0); Monocytes # (auto) 1.1 10 ^3/uL (0-1.3); Monocytes % (auto) 7.6 % (0.0-12.0); Neutrophils # (auto) 12.8 10 ^3/uL (1.6-8.6); Neutrophils % (auto) 86.4 % (37.0-80.0); Nucleated Red Blood Cells % 0.2 %; Red Blood Cells 5.37 10^6/uL (4.0-5.20); Red Cell Distribution Width 15.8 % (11.8-14.3); White Blood Cell 14.8 10^3/uL (4.4-10.8)
[2022-09-16] MEDS ORDERED: FUROSEMIDE 20 MG/2 ML VIAL IV ONE (08:45)
[2022-09-16] MEDS ORDERED: ALBUTEROL SULF 2.5 MG/0.5ML(0.5%) NEB SOLN NEB ONE ×3 (08:45→12:45)
[2022-09-16] MEDS ORDERED: CALCIUM GLUC 1,000mg/50ml-NS 50 ML IV ONE (08:45)
[2022-09-16] MEDS ORDERED: SODIUM CHLORIDE 0.9% 500 ML IV ONE (09:00)
[2022-09-16] MEDS ORDERED: cefTRIAXone 1GM/50ML D5W 50 ML IV SCH (09:00)
[2022-09-16] MEDS ORDERED: CALCIUM CHL 100MG/ML 1,000 MG in D5W 5% 100 ML IV ONE (10:00)
[2022-09-16] MEDS ORDERED: InsuLIN REG 1unit/0.01ml Soln (100units/ml) IV ONE (10:00)
[2022-09-16] MEDS ORDERED: PATIENTS OWN MEDICATION (Atorvastatin Calcium 1 TAB) PO SCH (10:00)
[2022-09-16] MEDS: ASPirin-EC 81 mg tab PO SCH (10:00)
[2022-09-16] MEDS ORDERED: DEXTROSE (50%) 50ML SYRG IV ONE (10:00)
[2022-09-16] MEDS: APIXABAN 5 MG TAB PO SCH (10:00)
[2022-09-16] MEDS ORDERED: ATORVASTATIN 20 MG TAB PO SCH (10:00)
[2022-09-16] MEDS ORDERED: METOPROLOL TARTRATE 25 MG TAB PO SCH (10:00)
[2022-09-16] MEDS: PANTOPRAZOLE 40 MG/10 ML VIAL INJ IV SCH (12:20)
[2022-09-16] MEDS: DEXTROSE 10% 250 ML IV PRN (12:37)
[2022-09-16] MEDS: VASOPRESSIN 20 UNITS in SODIUM CHL 0.9% 99 ML IV SCH (13:00)
[2022-09-16] MEDS ORDERED: VASOPRESSIN 20 UNIT/ML ONE (13:37)
[2022-09-16] MEDS ORDERED: ALBUMIN 25% 100 ML IV ONE (15:00)
[2022-09-16] MEDS ORDERED: METOPROLOL TARTRATE 1MG/1ML-5ML VIAL IV ONE (15:00)
[2022-09-16 16:39] LABS: Calcium 8.6 mg/dL (8.5-10.1)
[2022-09-16 16:40] LABS: Lactic Acid w/Reflex 7.6 mmol/L (0.4-2.0)
[2022-09-16 17:09] LABS: Urine Bacteria FEW /hpf (None Seen); Urine Blood 3+ /uL (Negative); Urine Budding Yeast MODERATE /hpf (None Seen); Urine Mucus FEW (None Seen); Urine Specific Gravity 1.025 (1.001-1.035); Urine WBC 217 /hpf (0 - 5); Urine WBC Clumps PRESENT /hpf (None Seen)
[2022-09-16 17:18] LABS: Protein, Urine 248.8 mg/dL (0.0-11.9)
[2022-09-16] MEDS ORDERED: FUROSEMIDE 40 MG/4 ML VIAL IV SCH (18:00)
[2022-09-16] MEDS: PHENYLEPHRINE IV 250 ML IV SCH (19:35)
[2022-09-16] MEDS: MEROPENEM 500MG IVPB 50 ML IV SCH (22:06)
[2022-09-17] VITALS (84 sets, daily range): BP systolic 78–140; BP diastolic 38–102
[2022-09-17] MEDS: SODIUM BICARBONATE 50ML VIAL 75 ML in D5W 5% 1,000 ML IV SCH (00:25)
[2022-09-17] MEDS: VASOPRESSIN 20 UNITS in SODIUM CHL 0.9% 99 ML IV SCH ×4 (00:57→22:20)
[2022-09-17] MEDS: PHENYLEPHRINE IV 250 ML IV SCH ×6 (03:15→22:29)
[2022-09-17 04:24] LABS: Basophils # (auto) 0 10 ^3/uL (0-0.2); Eosinophils # (auto) 0 10 ^3/uL (0-0.8); Hemoglobin 12.3 g/dL (12.2-16.2); Lymphocytes # (auto) 1.2 10 ^3/uL (0.4-5.4); Monocytes # (auto) 0.5 10 ^3/uL (0-1.3); Neutrophils # (auto) 10.7 10 ^3/uL (1.6-8.6); White Blood Cell 12.4 10^3/uL (4.4-10.8)
[2022-09-17 04:38] LABS: Basophils % (auto) 0.2 % (0.0-2.0); Eosinophils % (auto) 0.1 % (0.0-7.0); Hematocrit 37.9 % (36.0-46.0); Lymphocytes % (auto) 9.6 % (10.0-50.0); Mean Corpuscular Hemoglobin 29.4 pg (28.0-32.0); Mean Corpuscular Hgb Conc. 32.5 g/dL (32.0-36.0); Mean Corpuscular Volume 90.4 fL (80.0-100.0); Monocytes % (auto) 3.8 % (0.0-12.0); Neutrophils % (auto) 86.3 % (37.0-80.0); Nucleated Red Blood Cells % 2.9 %; Red Blood Cells 4.19 10^6/uL (4.0-5.20); Red Cell Distribution Width 15.6 % (11.8-14.3)
[2022-09-17 04:40] LABS: Albumin 3.1 g/dL (3.4-5.0); Calcium 7.9 mg/dL (8.5-10.1); Magnesium 2.3 mg/dL (1.6-2.6); Potassium 4.7 mmol/L (3.5-5.1)
[2022-09-17 04:58] LABS: BUN/Creatinine Ratio 12.6 (10.0-20.0); Bilirubin, Total 1.4 mg/dL (0.2-1.0); Phosphorus 4.9 mg/dL (2.5-4.90); Total Protein 5.3 g/dL (6.4-8.2)
[2022-09-17] MEDS: SODIUM CHLOR 0.9% PF (SALINE LOCK) 10ML VIAL/SYR IV SCH ×3 (05:46→21:39)
[2022-09-17 06:16] LABS: Basophils # (auto) 0 10 ^3/uL (0-0.2); Basophils % (auto) 0.1 % (0.0-2.0); Eosinophils # (auto) 0 10 ^3/uL (0-0.8); Hemoglobin 11.6 g/dL (12.2-16.2); Lymphocytes # (auto) 1.5 10 ^3/uL (0.4-5.4); Lymphocytes % (auto) 11.6 % (10.0-50.0); Mean Corpuscular Hemoglobin 29.5 pg (28.0-32.0); Mean Corpuscular Hgb Conc. 32.3 g/dL (32.0-36.0); Mean Corpuscular Volume 91.3 fL (80.0-100.0); Monocytes # (auto) 0.6 10 ^3/uL (0-1.3); Monocytes % (auto) 4.4 % (0.0-12.0); Neutrophils # (auto) 11.1 10 ^3/uL (1.6-8.6); Neutrophils % (auto) 83.9 % (37.0-80.0); Nucleated Red Blood Cells % 3.3 %; Red Blood Cells 3.94 10^6/uL (4.0-5.20); Red Cell Distribution Width 15.5 % (11.8-14.3); White Blood Cell 13.2 10^3/uL (4.4-10.8)
[2022-09-17] MEDS: ACCU-CHEK COMFORT CURVE STRIP VI SCH ×4 (06:59→21:40)
[2022-09-17] MEDS: InsuLIN REG 1unit/0.01ml Soln (100units/ml) SC SCH ×4 (07:00→21:40)
[2022-09-17] MEDS: LEVOTHYROXINE SODIUM 25 MCG TAB PO SCH (07:00)
[2022-09-17] MEDS: ASPirin-EC 81 mg tab PO SCH (10:00)
[2022-09-17] MEDS ORDERED: FUROSEMIDE 100 MG/10ML VIAL IV ONE (12:00)
[2022-09-17] MEDS: DOBUTamine 1000MCG/ML 250 ML IV SCH (12:03)
[2022-09-17] MEDS: PANTOPRAZOLE 40 MG/10 ML VIAL INJ IV SCH (12:17)
[2022-09-17] MEDS: MEROPENEM 500MG IVPB 50 ML IV SCH ×2 (12:18→21:40)
[2022-09-17] MEDS ORDERED: DIGOXIN (250MCG/ML) 2 ML AMPULE IV ONE ×2 (15:45→22:00)
[2022-09-17] MEDS ORDERED: FUROSEMIDE 100 MG/10ML VIAL IV SCH (18:00)
[2022-09-17] MEDS: BUMETANIDE 2.5mg/10ml (0.25 mg/ml) INJ IV SCH (18:01)
[2022-09-17 18:34] LABS: INR 3.97 (0.9-1.15); Partial Thromboplastin Time 41.6 sec (24.6-33.4)
[2022-09-17] MEDS: NOREPINEPHRINE 8 MG/250ML KIT 250 ML IV SCH (23:15)
[2022-09-18] VITALS (89 sets, daily range): BP systolic 77–127; BP diastolic 34–74
[2022-09-18 04:29] LABS: Basophils # (auto) 0 10 ^3/uL (0-0.2); Basophils % (auto) 0.1 % (0.0-2.0); Eosinophils # (auto) 0 10 ^3/uL (0-0.8); Eosinophils % (auto) 0.4 % (0.0-7.0); Hematocrit 33.5 % (36.0-46.0); Hemoglobin 11.2 g/dL (12.2-16.2); Lymphocytes # (auto) 0.7 10 ^3/uL (0.4-5.4); Mean Corpuscular Hgb Conc. 33.4 g/dL (32.0-36.0); Mean Corpuscular Volume 89.7 fL (80.0-100.0); Monocytes # (auto) 0.2 10 ^3/uL (0-1.3); Monocytes % (auto) 2.6 % (0.0-12.0); Neutrophils % (auto) 86.9 % (37.0-80.0); Nucleated Red Blood Cells % 2.1 %; Red Blood Cells 3.74 10^6/uL (4.0-5.20); Red Cell Distribution Width 15.2 % (11.8-14.3); White Blood Cell 6.9 10^3/uL (4.4-10.8)
[2022-09-18 04:48] LABS: Albumin 2.7 g/dL (3.4-5.0); Calcium 7.7 mg/dL (8.5-10.1); Magnesium 1.9 mg/dL (1.6-2.6); Phosphorus 4.2 mg/dL (2.5-4.90); Potassium 4.4 mmol/L (3.5-5.1)
[2022-09-18] MEDS: DOBUTamine 1000MCG/ML 250 ML IV SCH ×3 (04:49→18:00)
[2022-09-18 05:06] LABS: BUN/Creatinine Ratio 13.6 (10.0-20.0); Bilirubin, Total 1.9 mg/dL (0.2-1.0); Total Protein 4.8 g/dL (6.4-8.2)
[2022-09-18] MEDS: BUMETANIDE 2.5mg/10ml (0.25 mg/ml) INJ IV SCH ×2 (05:31→15:22)
[2022-09-18] MEDS: DEXTROSE 10% 250 ML IV PRN (05:33)
[2022-09-18] MEDS: SODIUM CHLOR 0.9% PF (SALINE LOCK) 10ML VIAL/SYR IV SCH ×3 (06:15→21:32)
[2022-09-18] MEDS: VASOPRESSIN 20 UNITS in SODIUM CHL 0.9% 99 ML IV SCH ×3 (06:30→23:20)
[2022-09-18] MEDS: ACCU-CHEK COMFORT CURVE STRIP VI SCH ×4 (06:58→21:32)
[2022-09-18] MEDS: LEVOTHYROXINE SODIUM 25 MCG TAB PO SCH (06:58)
[2022-09-18] MEDS: InsuLIN REG 1unit/0.01ml Soln (100units/ml) SC SCH ×4 (06:58→21:32)
[2022-09-18] MEDS: PHENYLEPHRINE IV 250 ML IV SCH ×4 (07:10→17:35)
[2022-09-18] MEDS: MEROPENEM 500MG IVPB 50 ML IV SCH ×2 (09:23→21:32)
[2022-09-18] MEDS: metOLazone 5 MG TAB PO SCH (09:23)
[2022-09-18] MEDS: ASPirin-EC 81 mg tab PO SCH (09:23)
[2022-09-18] MEDS: PANTOPRAZOLE 40 MG/10 ML VIAL INJ IV SCH (09:23)
[2022-09-18] MEDS ORDERED: ENOXAPARIN SOD 100 MG/1 ML SYRINGE SC SCH (10:00)
[2022-09-18] MEDS: ESMOLOL HCL-NS 10MG/ML 250 ML IV SCH ×4 (12:02→20:22)
[2022-09-18] MEDS ORDERED: SODIUM BICARBONATE 8.4 % INJ 50ML VIAL IV ONE (14:02)
[2022-09-18] MEDS: SODIUM BICARBONATE 50ML VIAL 50 ML in D5W/SOD CHL 0.45% 1,000 ML IV SCH (15:02)
[2022-09-18] MEDS: Ensure Enlive Vanilla 8oz Bottle PO SCH (18:51)
[2022-09-18] MEDS: NOREPINEPHRINE 8 MG/250ML KIT 250 ML IV SCH (23:15)
[2022-09-19] VITALS (87 sets, daily range): BP systolic 98–131; BP diastolic 47–82
[2022-09-19] MEDS: ESMOLOL HCL-NS 10MG/ML 250 ML IV SCH ×7 (00:15→21:24)
[2022-09-19] MEDS: SODIUM BICARBONATE 50ML VIAL 50 ML in D5W/SOD CHL 0.45% 1,000 ML IV SCH ×3 (00:30→19:50)
[2022-09-19] MEDS: PHENYLEPHRINE IV 250 ML IV SCH (02:32)
[2022-09-19] MEDS: DOBUTamine 1000MCG/ML 250 ML IV SCH ×3 (02:32→15:00)
[2022-09-19 04:02] LABS: Basophils # (auto) 0 10 ^3/uL (0-0.2); Basophils % (auto) 0.1 % (0.0-2.0); Eosinophils # (auto) 0.1 10 ^3/uL (0-0.8); Hematocrit 34.2 % (36.0-46.0); Hemoglobin 11.6 g/dL (12.2-16.2); Lymphocytes # (auto) 0.4 10 ^3/uL (0.4-5.4); Lymphocytes % (auto) 7.5 % (10.0-50.0); Mean Corpuscular Hemoglobin 30.2 pg (28.0-32.0); Mean Corpuscular Volume 88.8 fL (80.0-100.0); Monocytes # (auto) 0.3 10 ^3/uL (0-1.3); Monocytes % (auto) 4.4 % (0.0-12.0); Neutrophils # (auto) 5.1 10 ^3/uL (1.6-8.6); Nucleated Red Blood Cells % 1.2 %; Red Blood Cells 3.85 10^6/uL (4.0-5.20); Red Cell Distribution Width 15.6 % (11.8-14.3); White Blood Cell 5.8 10^3/uL (4.4-10.8)
[2022-09-19 04:04] LABS: Albumin 2.6 g/dL (3.4-5.0); Calcium 7.5 mg/dL (8.5-10.1); Magnesium 1.9 mg/dL (1.6-2.6); Potassium 3.9 mmol/L (3.5-5.1)
[2022-09-19 04:07] LABS: INR 2.48 (0.9-1.15); Partial Thromboplastin Time 36.2 sec (24.6-33.4)
[2022-09-19 04:21] LABS: BUN/Creatinine Ratio 13.9 (10.0-20.0); Bilirubin, Total 2.2 mg/dL (0.2-1.0); Total Protein 4.6 g/dL (6.4-8.2)
[2022-09-19] MEDS: BUMETANIDE 2.5mg/10ml (0.25 mg/ml) INJ IV SCH ×2 (05:33→18:14)
[2022-09-19] MEDS: SODIUM CHLOR 0.9% PF (SALINE LOCK) 10ML VIAL/SYR IV SCH ×3 (05:33→21:36)
[2022-09-19] MEDS: LEVOTHYROXINE SODIUM 25 MCG TAB PO SCH (06:23)
[2022-09-19] MEDS: InsuLIN REG 1unit/0.01ml Soln (100units/ml) SC SCH ×4 (06:24→21:19)
[2022-09-19] MEDS: ACCU-CHEK COMFORT CURVE STRIP VI SCH ×4 (06:24→21:20)
[2022-09-19] MEDS: VASOPRESSIN 20 UNITS in SODIUM CHL 0.9% 99 ML IV SCH ×2 (07:40→16:00)
[2022-09-19] MEDS: Ensure Enlive Vanilla 8oz Bottle PO SCH ×3 (08:00→18:00)
[2022-09-19] MEDS: MEROPENEM 500MG IVPB 50 ML IV SCH ×2 (09:45→21:36)
[2022-09-19] MEDS: FAMOTIDINE (10MG/ML) 2ML VL IV SCH (09:45)
[2022-09-19] MEDS: metOLazone 5 MG TAB PO SCH ×2 (09:46→10:40)
[2022-09-19] MEDS: ONDANSETRON HCL 4 MG/2 ML VIAL IV PRN ×2 (14:11→20:03)
[2022-09-19] MEDS: NOREPINEPHRINE 8 MG/250ML KIT 250 ML IV SCH (23:15)
[2022-09-20] VITALS (79 sets, daily range): BP systolic 83–153; BP diastolic 29–133
[2022-09-20] MEDS: VASOPRESSIN 20 UNITS in SODIUM CHL 0.9% 99 ML IV SCH ×3 (00:20→08:18)
[2022-09-20] MEDS: PHENYLEPHRINE IV 250 ML IV SCH ×3 (00:50→08:18)
[2022-09-20] MEDS: DOBUTamine 1000MCG/ML 250 ML IV SCH (00:51)
[2022-09-20] MEDS: ESMOLOL HCL-NS 10MG/ML 250 ML IV SCH ×8 (02:05→23:05)
[2022-09-20 04:06] LABS: Basophils # (auto) 0 10 ^3/uL (0-0.2); Basophils % (auto) 0.2 % (0.0-2.0); Eosinophils # (auto) 0 10 ^3/uL (0-0.8); Eosinophils % (auto) 0.5 % (0.0-7.0); Hematocrit 36.2 % (36.0-46.0); Hemoglobin 12.1 g/dL (12.2-16.2); Lymphocytes # (auto) 0.6 10 ^3/uL (0.4-5.4); Lymphocytes % (auto) 10.2 % (10.0-50.0); Mean Corpuscular Hemoglobin 29.5 pg (28.0-32.0); Mean Corpuscular Hgb Conc. 33.5 g/dL (32.0-36.0); Mean Corpuscular Volume 88.1 fL (80.0-100.0); Monocytes # (auto) 0.4 10 ^3/uL (0-1.3); Monocytes % (auto) 6.4 % (0.0-12.0); Neutrophils # (auto) 4.6 10 ^3/uL (1.6-8.6); Neutrophils % (auto) 82.7 % (37.0-80.0); Nucleated Red Blood Cells % 1.2 %; Red Blood Cells 4.11 10^6/uL (4.0-5.20); Red Cell Distribution Width 15.6 % (11.8-14.3); White Blood Cell 5.5 10^3/uL (4.4-10.8)
[2022-09-20 04:21] LABS: Calcium 7.7 mg/dL (8.5-10.1); Potassium 3.3 mmol/L (3.5-5.1)
[2022-09-20 04:25] LABS: Albumin 2.6 g/dL (3.4-5.0); BUN/Creatinine Ratio 14.4 (10.0-20.0)
[2022-09-20 04:53] LABS: Bilirubin, Total 2.1 mg/dL (0.2-1.0); Total Protein 4.8 g/dL (6.4-8.2)
[2022-09-20] MEDS ORDERED: POTASSIUM CHL 20MEQ/100ML 100 ML IV ONE (05:15)
[2022-09-20] MEDS: BUMETANIDE 2.5mg/10ml (0.25 mg/ml) INJ IV SCH ×2 (05:35→17:00)
[2022-09-20] MEDS: SODIUM CHLOR 0.9% PF (SALINE LOCK) 10ML VIAL/SYR IV SCH ×3 (05:36→22:22)
[2022-09-20] MEDS: LEVOTHYROXINE SODIUM 25 MCG TAB PO SCH (06:32)
[2022-09-20] MEDS: ACCU-CHEK COMFORT CURVE STRIP VI SCH ×4 (06:32→22:00)
[2022-09-20] MEDS: InsuLIN REG 1unit/0.01ml Soln (100units/ml) SC SCH ×4 (06:32→22:00)
[2022-09-20] MEDS: Ensure Enlive Vanilla 8oz Bottle PO SCH ×3 (08:00→18:00)
[2022-09-20] MEDS: FAMOTIDINE (10MG/ML) 2ML VL IV SCH (08:34)
[2022-09-20] MEDS: MEROPENEM 500MG IVPB 50 ML IV SCH ×2 (08:36→22:22)
[2022-09-20] MEDS: metOLazone 5 MG TAB PO SCH (09:16)
[2022-09-20] MEDS: POTASSIUM CHL 20MEQ/100ML 100 ML IV SCH ×2 (13:12→15:45)
[2022-09-20 14:22] LABS: Hepatitis A Ab IgM Negative; Hepatitis B Core IgM Negative
[2022-09-20 14:23] LABS: Hepatitis C Antibody Negative (Negative)
[2022-09-20] MEDS: NOREPINEPHRINE 8 MG/250ML KIT 250 ML IV SCH (23:15)
[2022-09-21] VITALS (60 sets, daily range): BP systolic 87–133; BP diastolic 14–82
[2022-09-21] MEDS: VASOPRESSIN 20 UNITS in SODIUM CHL 0.9% 99 ML IV SCH ×3 (01:20→16:08)
[2022-09-21] MEDS: PHENYLEPHRINE IV 250 ML IV SCH ×3 (01:50→16:08)
[2022-09-21 04:00] LABS: Basophils # (auto) 0 10 ^3/uL (0-0.2); Basophils % (auto) 0.2 % (0.0-2.0); Eosinophils # (auto) 0.1 10 ^3/uL (0-0.8); Eosinophils % (auto) 2.5 % (0.0-7.0); Hematocrit 36.1 % (36.0-46.0); Hemoglobin 12.2 g/dL (12.2-16.2); Lymphocytes # (auto) 0.8 10 ^3/uL (0.4-5.4); Lymphocytes % (auto) 15.9 % (10.0-50.0); Mean Corpuscular Hgb Conc. 33.9 g/dL (32.0-36.0); Mean Corpuscular Volume 88.5 fL (80.0-100.0); Monocytes # (auto) 0.5 10 ^3/uL (0-1.3); Monocytes % (auto) 9.5 % (0.0-12.0); Neutrophils # (auto) 3.7 10 ^3/uL (1.6-8.6); Neutrophils % (auto) 71.9 % (37.0-80.0); Nucleated Red Blood Cells % 0.4 %; Red Blood Cells 4.08 10^6/uL (4.0-5.20); Red Cell Distribution Width 15.6 % (11.8-14.3); White Blood Cell 5.1 10^3/uL (4.4-10.8)
[2022-09-21 04:13] LABS: Albumin 2.6 g/dL (3.4-5.0); Calcium 8.1 mg/dL (8.5-10.1); Magnesium 1.6 mg/dL (1.6-2.6); Potassium 3.4 mmol/L (3.5-5.1)
[2022-09-21 04:32] LABS: BUN/Creatinine Ratio 17.5 (10.0-20.0); Phosphorus 3.2 mg/dL (2.5-4.90); Total Protein 4.8 g/dL (6.4-8.2)
[2022-09-21] MEDS: BUMETANIDE 2.5mg/10ml (0.25 mg/ml) INJ IV SCH ×2 (06:13→18:46)
[2022-09-21] MEDS: ACCU-CHEK COMFORT CURVE STRIP VI SCH ×4 (06:14→21:14)
[2022-09-21] MEDS: SODIUM CHLOR 0.9% PF (SALINE LOCK) 10ML VIAL/SYR IV SCH ×3 (06:14→21:14)
[2022-09-21] MEDS: InsuLIN REG 1unit/0.01ml Soln (100units/ml) SC SCH ×4 (06:14→21:15)
[2022-09-21] MEDS: LEVOTHYROXINE SODIUM 25 MCG TAB PO SCH (06:14)
[2022-09-21] MEDS: Ensure Enlive Vanilla 8oz Bottle PO SCH ×3 (07:11→18:46)
[2022-09-21] MEDS: metOLazone 5 MG TAB PO SCH (09:09)
[2022-09-21] MEDS: MEROPENEM 500MG IVPB 50 ML IV SCH ×2 (09:13→21:14)
[2022-09-21] MEDS: FAMOTIDINE (10MG/ML) 2ML VL IV SCH (09:13)
[2022-09-21] MEDS: ESMOLOL HCL-NS 10MG/ML 250 ML IV SCH (11:12)
[2022-09-21] MEDS ORDERED: POTASSIUM CHL 20MEQ/100ML 100 ML IV ONE (16:15)
[2022-09-21] MEDS: NOREPINEPHRINE 8 MG/250ML KIT 250 ML IV SCH (23:15)
[2022-09-22] VITALS (63 sets, daily range): BP systolic 84–130; BP diastolic 40–79
[2022-09-22] MEDS: VASOPRESSIN 20 UNITS in SODIUM CHL 0.9% 99 ML IV SCH ×2 (02:20→10:40)
[2022-09-22] MEDS: PHENYLEPHRINE IV 250 ML IV SCH ×2 (02:50→11:10)
[2022-09-22] MEDS: ESMOLOL HCL-NS 10MG/ML 250 ML IV SCH (03:22)
[2022-09-22 04:28] LABS: Basophils # (auto) 0 10 ^3/uL (0-0.2); Basophils % (auto) 0.3 % (0.0-2.0); Eosinophils # (auto) 0.2 10 ^3/uL (0-0.8); Eosinophils % (auto) 2.9 % (0.0-7.0); Hematocrit 38.4 % (36.0-46.0); Hemoglobin 13.2 g/dL (12.2-16.2); Lymphocytes # (auto) 1.4 10 ^3/uL (0.4-5.4); Lymphocytes % (auto) 17.5 % (10.0-50.0); Mean Corpuscular Hemoglobin 29.9 pg (28.0-32.0); Mean Corpuscular Hgb Conc. 34.3 g/dL (32.0-36.0); Mean Corpuscular Volume 87.2 fL (80.0-100.0); Monocytes # (auto) 0.9 10 ^3/uL (0-1.3); Monocytes % (auto) 11.1 % (0.0-12.0); Neutrophils # (auto) 5.4 10 ^3/uL (1.6-8.6); Neutrophils % (auto) 68.2 % (37.0-80.0); Nucleated Red Blood Cells % 0.3 %; Red Blood Cells 4.41 10^6/uL (4.0-5.20); Red Cell Distribution Width 15.3 % (11.8-14.3)
[2022-09-22 04:29] LABS: Potassium 2.8 mmol/L (3.5-5.1)
[2022-09-22 04:31] LABS: BUN/Creatinine Ratio 21.4 (10.0-20.0); Calcium 8.5 mg/dL (8.5-10.1)
[2022-09-22] MEDS: SODIUM CHLOR 0.9% PF (SALINE LOCK) 10ML VIAL/SYR IV SCH ×2 (06:00→14:00)
[2022-09-22] MEDS: BUMETANIDE 2.5mg/10ml (0.25 mg/ml) INJ IV SCH (06:00)
[2022-09-22] MEDS: ACCU-CHEK COMFORT CURVE STRIP VI SCH ×2 (06:37→11:53)
[2022-09-22] MEDS: InsuLIN REG 1unit/0.01ml Soln (100units/ml) SC SCH ×2 (06:37→11:53)
[2022-09-22] MEDS: LEVOTHYROXINE SODIUM 25 MCG TAB PO SCH (06:37)
[2022-09-22] MEDS ORDERED: MAGNESIUM SULFATE 1GM/100ML 100 ML IV ONE ×2 (08:00→11:45)
[2022-09-22] MEDS: Ensure Enlive Vanilla 8oz Bottle PO SCH ×2 (09:10→12:00)
[2022-09-22] MEDS: POTASSIUM CHL 20MEQ/100ML 100 ML IV SCH ×3 (09:21→16:26)
[2022-09-22] MEDS: FAMOTIDINE (10MG/ML) 2ML VL IV SCH (09:45)
[2022-09-22] MEDS: MEROPENEM 500MG IVPB 50 ML IV SCH (09:46)
[2022-09-22] MEDS: metOLazone 5 MG TAB PO SCH (10:00)
[2022-09-22] MEDS ORDERED: traMADol HCL 50 MG TAB PO PRN (13:15)
[2022-09-22] MEDS ORDERED: MORPHINE SULFATE INJ 2 MG/ml SYRG IV PRN (13:30)
[2022-09-22] MEDS ORDERED: traMADol HCL 50 MG TAB PO ONE (13:45)
== END 2022-09-22 18:00 | disposition hospice, home (50) | DRG 871 ==
LOC: EDBD 15:25 → ER 15:25 → TELE 18:46 → ICU WEST 09-16 09:13
PROVIDERS: ADMIT Nurse Practitioner Family; ATTEND Internal Medicine
DX: A41.9 Sepsis, unspecified organism (principal); I50.43 Acute on chronic combined systolic (congestive) and diastolic (congestive) heart failure; K72.00 Acute and subacute hepatic failure without coma; R65.21 Severe sepsis with septic shock; N17.0 Acute kidney failure with tubular necrosis; D68.69 Other thrombophilia; E46 Unspecified protein-calorie malnutrition; G93.40 Encephalopathy, unspecified; I13.0 Hypertensive heart and chronic kidney disease with heart failure and stage 1 through stage 4 chronic kidney disease, or unspecified chronic kidney disease; J96.11 Chronic respiratory failure with hypoxia; N39.0 Urinary tract infection, site not specified; I42.9 Cardiomyopathy, unspecified; Z66 Do not resuscitate; Z20.822 Contact with and (suspected) exposure to COVID-19; E11.22 Type 2 diabetes mellitus with diabetic chronic kidney disease; E78.5 Hyperlipidemia, unspecified; E87.5 Hyperkalemia; E87.6 Hypokalemia; F03.90 Unspecified dementia, unspecified severity, without behavioral disturbance, psychotic disturbance, mood disturbance, and anxiety; I48.91 Unspecified atrial fibrillation; Z96.653 Presence of artificial knee joint, bilateral; J44.9 Chronic obstructive pulmonary disease, unspecified; N18.9 Chronic kidney disease, unspecified; W06.XXXA Fall from bed, initial encounter; E11.65 Type 2 diabetes mellitus with hyperglycemia; Z79.01 Long term (current) use of anticoagulants; Z79.82 Long term (current) use of aspirin; Y92.003 Bedroom of unspecified non-institutional (private) residence as the place of occurrence of the external cause; Z68.37 Body mass index [BMI] 37.0-37.9, adult; Z79.899 Other long term (current) drug therapy; Z82.49 Family history of ischemic heart disease and other diseases of the circulatory system; Z90.710 Acquired absence of both cervix and uterus; Z99.81 Dependence on supplemental oxygen; Y99.8 Other external cause status
CPT/HCPCS: 36415; 36600; 70450; 71045; 76700; 76775; 80048; 80053; 80074; 81001; 82306; 82570; 82805; 82962; 83036; 83605; 83735; 83880; 83935; 83970; 84100; 84132; 84133; 84156; 84300; 84443; 84484; 85025; 85362; 85610; 85730; 87081; 87086; 87088; 87186; 87426; 93005; 93306; 94640; 96361; 96365; 96367; 97163; 99291; C9113; G0378; J0696; J1815; J2185; J2405; J3480; J3490; J7060; P9047

== ENCOUNTER 2022-11-04 08:59 | Inpatient (IN) | payer OTHER, MEDICAID ==
[2022-11-04] VITALS (8 sets, daily range): BP systolic 85–138; BP diastolic 56–117
[~2022-11-04] VITALS: Ht 170.2 cm; Wt 83.4 kg
[~2022-11-04 08:59] MED LIST changes: +APIX5TAB PO; +ATOR20TA50 PO; -CIPR-173 PO; +FUR20T PO; +LEV25T PO; -LISI20TA28 PO; +MET25T PO; -NITR-87 PO
[2022-11-04] MEDS ORDERED: SODIUM CHLORIDE 0.9% 1,000 ML IV ONE (09:45)
[2022-11-04] MEDS ORDERED: dilTIAZem 25 MG/5 ML VIAL IV ONE (09:45)
[2022-11-04 10:38] LABS: INR 1.5 (0.9-1.15); Partial Thromboplastin Time 34.5 sec (24.6-33.4)
[2022-11-04 10:44] LABS: Basophils # (auto) 0 10 ^3/uL (0-0.2); Basophils % (auto) 0.2 % (0.0-2.0); Eosinophils # (auto) 0.1 10 ^3/uL (0-0.8); Eosinophils % (auto) 1.2 % (0.0-7.0); Hematocrit 41.4 % (36.0-46.0); Hemoglobin 13.7 g/dL (12.2-16.2); Lymphocytes % (auto) 30.3 % (10.0-50.0); Mean Corpuscular Hemoglobin 30.8 pg (28.0-32.0); Mean Corpuscular Volume 93.3 fL (80.0-100.0); Monocytes # (auto) 0.5 10 ^3/uL (0-1.3); Monocytes % (auto) 4.7 % (0.0-12.0); Neutrophils # (auto) 6.3 10 ^3/uL (1.6-8.6); Neutrophils % (auto) 63.6 % (37.0-80.0); Nucleated Red Blood Cells % 0.3 %; Red Blood Cells 4.44 10^6/uL (4.0-5.20); Red Cell Distribution Width 20.2 % (11.8-14.3); White Blood Cell 9.9 10^3/uL (4.4-10.8)
[2022-11-04 11:26] LABS: Albumin 2.5 g/dL (3.4-5.0); Calcium 7.9 mg/dL (8.5-10.1); Magnesium 2.5 mg/dL (1.6-2.6); Potassium 4.6 mmol/L (3.5-5.1)
[2022-11-04] MEDS ORDERED: AMIODARONE HCL 150 MG in D5W 5% 100 ML IV ONE (14:15)
[2022-11-04] MEDS ORDERED: NITROGLYCERIN 0.4 MG SL TAB SL PRN (14:30)
[2022-11-04] MEDS ORDERED: HYDROcodone-ACET 5/325MG TAB PO PRN (14:30)
[2022-11-04] MEDS ORDERED: MORPHINE SULFATE INJ 2 MG/ml SYRG IV PRN (14:30)
[2022-11-04] MEDS ORDERED: AMIODARONE 450mg/250ml AE 250 ML IV SCH ×2 (14:30→20:30)
[2022-11-04] MEDS ORDERED: ACETAMINOPHEN 325 MG TAB PO PRN (14:30)
[2022-11-04] MEDS ORDERED: ONDANSETRON HCL 4 MG/2 ML VIAL IV PRN (14:30)
[2022-11-04] MEDS ORDERED: PANTOPRAZOLE 40 MG/10 ML VIAL INJ IV ONE (15:00)
[2022-11-04] MEDS ORDERED: DEXTROSE (50%) 50ML SYRG IV PRN (15:00)
[2022-11-04] MEDS: SODIUM CHLORIDE 0.9% 1,000 ML IV SCH (15:00)
[2022-11-04] MEDS ORDERED: ALBUTEROL SULF 2.5 MG/0.5ML(0.5%) NEB SOLN NEB PRN (15:15)
[2022-11-04] MEDS ORDERED: IPRATROPIUM BROM 0.5 MG/2.5ML INH SOL NEB PRN (15:15)
[2022-11-04 16:04] LABS: Cholesterol 60 mg/dL (< 200); HDL Cholesterol 10 mg/dL (40-59); LDL Cholesterol 38 mg/dL (< 100); Triglycerides 124 mg/dL (< 150)
[2022-11-04] MEDS: ALBUTEROL SULF 2.5 MG/0.5ML(0.5%) NEB SOLN NEB SCH (18:00)
[2022-11-04] MEDS: ACCU-CHEK COMFORT CURVE STRIP VI SCH (18:00)
[2022-11-04] MEDS: IPRATROPIUM BROM 0.5 MG/2.5ML INH SOL NEB SCH (18:00)
[2022-11-04] MEDS: InsuLIN REG 1unit/0.01ml Soln (100units/ml) SC SCH (18:00)
[2022-11-04] MEDS: CEFEPIME 1GM/ 50ML 50 ML IV SCH (18:09)
[2022-11-04] MEDS: metroNIDAZOLE 500MG/100ML 100 ML IV SCH (18:12)
[2022-11-04] MEDS ORDERED: METOPROLOL TARTRATE 1MG/1ML-5ML VIAL IV ONE ×2 (18:15→19:45)
[2022-11-04] MEDS ORDERED: HEPARIN SODIUM (PORCINE) 5000 UNITS/ML 1ML VIAL SC SCH (22:00)
[2022-11-04] MEDS: APIXABAN 2.5 MG TAB PO SCH (22:00)
[2022-11-05] VITALS (95 sets, daily range): BP systolic 73–117; BP diastolic 30–93
[2022-11-05] MEDS: ALBUTEROL SULF 2.5 MG/0.5ML(0.5%) NEB SOLN NEB SCH ×4 (01:11→18:20)
[2022-11-05] MEDS: IPRATROPIUM BROM 0.5 MG/2.5ML INH SOL NEB SCH ×4 (01:11→18:20)
[2022-11-05] MEDS: metroNIDAZOLE 500MG/100ML 100 ML IV SCH ×3 (02:00→18:04)
[2022-11-05 05:12] LABS: Basophils # (auto) 0 10 ^3/uL (0-0.2); Basophils % (auto) 0.4 % (0.0-2.0); Eosinophils # (auto) 0.1 10 ^3/uL (0-0.8); Eosinophils % (auto) 1.5 % (0.0-7.0); Hematocrit 35.5 % (36.0-46.0); Hemoglobin 11.7 g/dL (12.2-16.2); Lymphocytes # (auto) 2.1 10 ^3/uL (0.4-5.4); Lymphocytes % (auto) 26.8 % (10.0-50.0); Mean Corpuscular Hemoglobin 30.9 pg (28.0-32.0); Mean Corpuscular Volume 93.8 fL (80.0-100.0); Monocytes # (auto) 0.4 10 ^3/uL (0-1.3); Monocytes % (auto) 5.5 % (0.0-12.0); Neutrophils # (auto) 5.2 10 ^3/uL (1.6-8.6); Neutrophils % (auto) 65.8 % (37.0-80.0); Nucleated Red Blood Cells % 0.3 %; Red Blood Cells 3.78 10^6/uL (4.0-5.20); White Blood Cell 7.9 10^3/uL (4.4-10.8)
[2022-11-05 05:32] LABS: Red Cell Distribution Width 20.3 % (11.8-14.3)
[2022-11-05 05:33] LABS: Albumin 2.1 g/dL (3.4-5.0); Calcium 7.7 mg/dL (8.5-10.1)
[2022-11-05 05:36] LABS: BUN/Creatinine Ratio 33.3 (10.0-20.0); Bilirubin, Total 1.7 mg/dL (0.2-1.0); Total Protein 5.5 g/dL (6.4-8.2)
[2022-11-05] MEDS: ACCU-CHEK COMFORT CURVE STRIP VI SCH ×5 (06:00→23:43)
[2022-11-05] MEDS: InsuLIN REG 1unit/0.01ml Soln (100units/ml) SC SCH ×5 (06:00→23:43)
[2022-11-05] MEDS: SODIUM CHLORIDE 0.9% 1,000 ML IV SCH ×2 (07:40→23:31)
[2022-11-05] MEDS: LEVOTHYROXINE SODIUM 25 MCG TAB PO SCH (09:57)
[2022-11-05] MEDS: ATORVASTATIN 20 MG TAB PO SCH (09:58)
[2022-11-05] MEDS: POTASSIUM CHLORIDE 8 MEQ TAB PO SCH (09:59)
[2022-11-05] MEDS: PANTOPRAZOLE 40 MG/10 ML VIAL INJ IV SCH (09:59)
[2022-11-05] MEDS: FUROSEMIDE 20 MG/2 ML VIAL IV SCH (09:59)
[2022-11-05] MEDS ORDERED: METOPROLOL TARTRATE 25 MG TAB PO SCH (10:00)
[2022-11-05] MEDS: MORPHINE SULFATE INJ 2 MG/ml SYRG IV PRN ×3 (10:00→20:38)
[2022-11-05] MEDS: APIXABAN 2.5 MG TAB PO SCH ×2 (12:42→21:38)
[2022-11-05] MEDS: ASPirin 81 mg TAB PO SCH (12:42)
[2022-11-05] MEDS: CEFEPIME 1GM/ 50ML 50 ML IV SCH (12:42)
[2022-11-05] MEDS ORDERED: DIGOXIN (250MCG/ML) 2 ML AMPULE IV ONE ×2 (15:45→22:00)
[2022-11-05] MEDS: AMIODARONE 450mg/250ml AE 250 ML IV SCH ×2 (17:38→23:31)
[2022-11-05] MEDS: METOPROLOL TARTRATE 25 MG TAB PO SCH (21:38)
[2022-11-06] VITALS (88 sets, daily range): BP systolic 61–130; BP diastolic 5–84
[2022-11-06] MEDS: ALBUTEROL SULF 2.5 MG/0.5ML(0.5%) NEB SOLN NEB SCH ×2 (00:35→06:54)
[2022-11-06] MEDS: IPRATROPIUM BROM 0.5 MG/2.5ML INH SOL NEB SCH ×4 (00:35→18:14)
[2022-11-06] MEDS: PHENYLEPHRINE IV 250 ML IV SCH ×7 (01:47→22:04)
[2022-11-06] MEDS: metroNIDAZOLE 500MG/100ML 100 ML IV SCH ×3 (01:48→18:17)
[2022-11-06] MEDS: MORPHINE SULFATE INJ 2 MG/ml SYRG IV PRN ×4 (05:06→22:19)
[2022-11-06] MEDS: ACCU-CHEK COMFORT CURVE STRIP VI SCH ×3 (05:27→18:13)
[2022-11-06] MEDS: InsuLIN REG 1unit/0.01ml Soln (100units/ml) SC SCH ×3 (05:27→18:00)
[2022-11-06] MEDS: AMIODARONE 450mg/250ml AE 250 ML IV SCH ×3 (07:39→22:28)
[2022-11-06] MEDS: PANTOPRAZOLE 40 MG/10 ML VIAL INJ IV SCH (09:46)
[2022-11-06] MEDS: ASPirin 81 mg TAB PO SCH (09:46)
[2022-11-06] MEDS: ATORVASTATIN 20 MG TAB PO SCH (09:46)
[2022-11-06] MEDS: APIXABAN 2.5 MG TAB PO SCH ×2 (09:46→20:45)
[2022-11-06] MEDS: LEVOTHYROXINE SODIUM 25 MCG TAB PO SCH (09:46)
[2022-11-06] MEDS: FUROSEMIDE 20 MG/2 ML VIAL IV SCH (09:47)
[2022-11-06] MEDS: CEFEPIME 1GM/ 50ML 50 ML IV SCH (09:48)
[2022-11-06] MEDS: METOPROLOL TARTRATE 25 MG TAB PO SCH ×2 (09:49→20:44)
[2022-11-06] MEDS: POTASSIUM CHLORIDE 8 MEQ TAB PO SCH (10:27)
[2022-11-06] MEDS ORDERED: NYSTATIN (MOUTH-THROAT) 500,000 UNITS/5 ML SUSP MT ONE (10:45)
[2022-11-06] MEDS ORDERED: FLUCONAZOLE 200MG/100ML 100 ML IV ONE (10:45)
[2022-11-06 11:06] LABS: Urine Bacteria FEW /hpf (None Seen); Urine Blood TRACE /uL (Negative); Urine Budding Yeast MANY /hpf (None Seen); Urine Hyaline Cast FEW /lpf (0 - 2); Urine Mucus FEW (None Seen); Urine Specific Gravity 1.022 (1.001-1.035); Urine WBC 385 /hpf (0 - 5); Urine WBC Clumps PRESENT /hpf (None Seen)
[2022-11-06 11:20] LABS: Free T4 (Free Thyroxine) 1.53 ng/dL (0.89-1.76)
[2022-11-06 11:21] LABS: Free T3 1.26 pg/mL (2.3-4.2)
[2022-11-06] MEDS ORDERED: LIDOCAINE 1% (LOCAL ANESTH.) PF 5ml SDV ID ONE (11:30)
[2022-11-06 12:15] LABS: Hematocrit 37.9 % (36.0-46.0); Hemoglobin 12.1 g/dL (12.2-16.2); Mean Corpuscular Hemoglobin 30.8 pg (28.0-32.0); Mean Corpuscular Hgb Conc. 31.9 g/dL (32.0-36.0); Mean Corpuscular Volume 96.5 fL (80.0-100.0); Red Blood Cells 3.92 10^6/uL (4.0-5.20); White Blood Cell 14.3 10^3/uL (4.4-10.8)
[2022-11-06 12:16] LABS: Red Cell Distribution Width 21.2 % (11.8-14.3)
[2022-11-06 12:17] LABS: Basophils % (manual) 0 (0.0-2.0); Blast Cells 0; Eosinophils % (manual) 0 (0-7); Metamyelocytes % 0; Myelocytes % 0; Promyelocytes % 0; Reactive Lymphocytes 0
[2022-11-06 12:29] LABS: Albumin 2.1 g/dL (3.4-5.0); Calcium 7.5 mg/dL (8.5-10.1)
[2022-11-06 12:44] LABS: BUN/Creatinine Ratio 25.1 (10.0-20.0); Bilirubin, Total 2.7 mg/dL (0.2-1.0); Potassium 4.9 mmol/L (3.5-5.1); Total Protein 5.6 g/dL (6.4-8.2)
[2022-11-06 12:52] LABS: Band Neutrophils % (manual) 3; Lymphocytes % (manual) 12 (10.0-50.0); Monocytes % (manual) 5 (0-12)
[2022-11-06] MEDS: NYSTATIN (MOUTH-THROAT) 500,000 UNITS/5 ML SUSP MT SCH ×3 (14:20→20:45)
[2022-11-06] MEDS ORDERED: MUPIROCIN 2% OINT 15gm or 22gm FOR MRSA NARES EACHNOSTRI SCH (22:00)
[2022-11-06] MEDS ORDERED: SODIUM CHLOR 0.9% PF (SALINE LOCK) 10ML VIAL/SYR IV SCH (22:00)
[2022-11-07] VITALS (29 sets, daily range): BP systolic 52–121; BP diastolic 15–91
[2022-11-07] MEDS: ACCU-CHEK COMFORT CURVE STRIP VI SCH ×2 (00:04→05:29)
[2022-11-07] MEDS: PHENYLEPHRINE IV 250 ML IV SCH ×3 (00:09→04:19)
[2022-11-07] MEDS: IPRATROPIUM BROM 0.5 MG/2.5ML INH SOL NEB SCH ×2 (00:33→06:23)
[2022-11-07] MEDS: metroNIDAZOLE 500MG/100ML 100 ML IV SCH (01:34)
[2022-11-07 02:42] LABS: Hemoglobin 12.2 g/dL (12.2-16.2); Mean Corpuscular Hemoglobin 31.6 pg (28.0-32.0); Mean Corpuscular Hgb Conc. 31.2 g/dL (32.0-36.0); Mean Corpuscular Volume 101.2 fL (80.0-100.0); Red Blood Cells 3.85 10^6/uL (4.0-5.20); White Blood Cell 14.5 10^3/uL (4.4-10.8)
[2022-11-07] MEDS: MORPHINE SULFATE INJ 2 MG/ml SYRG IV PRN (02:48)
[2022-11-07 03:08] LABS: Calcium 7.3 mg/dL (8.5-10.1); Potassium 5.4 mmol/L (3.5-5.1)
[2022-11-07 03:11] LABS: Bilirubin, Total 2.3 mg/dL (0.2-1.0); Total Protein 5.4 g/dL (6.4-8.2)
[2022-11-07 03:25] LABS: Basophils % (manual) 0 (0.0-2.0); Blast Cells 0; Eosinophils % (manual) 0 (0-7); Metamyelocytes % 0; Myelocytes % 0; Promyelocytes % 0; Reactive Lymphocytes 0
[2022-11-07 03:27] LABS: BUN/Creatinine Ratio 21.8 (10.0-20.0)
[2022-11-07] MEDS: NYSTATIN (MOUTH-THROAT) 500,000 UNITS/5 ML SUSP MT SCH (05:29)
[2022-11-07] MEDS: InsuLIN REG 1unit/0.01ml Soln (100units/ml) SC SCH ×2 (05:29)
[2022-11-07] MEDS: AMIODARONE 450mg/250ml AE 250 ML IV SCH (06:01)
[2022-11-07] MEDS ORDERED: SODIUM BICARBONATE 8.4 % INJ 50ML VIAL IV ONE (07:15)
[2022-11-07] MEDS ORDERED: InsuLIN REG 1unit/0.01ml Soln (100units/ml) IV ONE (07:15)
[2022-11-07] MEDS ORDERED: CALCIUM GLUC 1,000mg/50ml-NS 50 ML IV ONE (07:15)
[2022-11-07] MEDS ORDERED: DEXTROSE (50%) 50ML SYRG IV ONE (07:15)
[2022-11-07] MEDS ORDERED: SODIUM ZIRCONIUM CYCL 10 GM PAK PO SCH (07:15)
[2022-11-07 07:23] LABS: Band Neutrophils % (manual) 1; Lymphocytes % (manual) 10 (10.0-50.0); Monocytes % (manual) 1 (0-12)
[2022-11-07] MEDS ORDERED: FLUCONAZOLE 200MG/100ML 100 ML IV SCH (10:00)
== END 2022-11-07 11:50 | DRG 871 ==
LOC: EDBD 08:59 → ER 08:59 → TELE 14:32 → DOU IN ICU 22:34 → ICU CENTRL 11-06 21:41
PROVIDERS: ADMIT Registered Nurse; ATTEND Internal Medicine
PROC: 02HV33Z Insertion of Infusion Device into Superior Vena Cava, Percutaneous Approach (ICD-10-PCS; principal; 2022-11-06)
PROC: B548ZZA Ultrasonography of Superior Vena Cava, Guidance (ICD-10-PCS; 2022-11-06)
DX: A41.9 Sepsis, unspecified organism (principal); I50.21 Acute systolic (congestive) heart failure; N17.0 Acute kidney failure with tubular necrosis; R65.21 Severe sepsis with septic shock; D68.9 Coagulation defect, unspecified; I13.0 Hypertensive heart and chronic kidney disease with heart failure and stage 1 through stage 4 chronic kidney disease, or unspecified chronic kidney disease; J44.1 Chronic obstructive pulmonary disease with (acute) exacerbation; L02.211 Cutaneous abscess of abdominal wall; N39.0 Urinary tract infection, site not specified; I48.20 Chronic atrial fibrillation, unspecified; E44.0 Moderate protein-calorie malnutrition; D68.69 Other thrombophilia; N18.4 Chronic kidney disease, stage 4 (severe); Z66 Do not resuscitate; E11.22 Type 2 diabetes mellitus with diabetic chronic kidney disease; E78.5 Hyperlipidemia, unspecified; F03.90 Unspecified dementia, unspecified severity, without behavioral disturbance, psychotic disturbance, mood disturbance, and anxiety; I25.5 Ischemic cardiomyopathy; K52.89 Other specified noninfective gastroenteritis and colitis; K57.30 Diverticulosis of large intestine without perforation or abscess without bleeding; K80.50 Calculus of bile duct without cholangitis or cholecystitis without obstruction; E03.9 Hypothyroidism, unspecified; K56.41 Fecal impaction; D69.6 Thrombocytopenia, unspecified; R57.0 Cardiogenic shock; Z90.710 Acquired absence of both cervix and uterus; Z82.49 Family history of ischemic heart disease and other diseases of the circulatory system; Z68.28 Body mass index [BMI] 28.0-28.9, adult
CPT/HCPCS: 36415; 36569; 71045; 74176; 74181; 76705; 80053; 80061; 81001; 82962; 83036; 83605; 83690; 83735; 84439; 84443; 84481; 84484; 85007; 85025; 85027; 85610; 85730; 87040; 87045; 87081; 87086; 87088; 93005; 94640; 96361; 96365; 96375; C9113; G0378; J1450; J2405; J3490; J7060